=== PATIENT | female | born 1975 | race Caucasian/White ===

== ENCOUNTER 2016-07-18 18:42 | Emergency (ER) | payer OTHER | END 2016-07-18 22:31 | disposition critical access hospital (66) | LOC: ER 18:42 | DX: T40.1X1A Poisoning by heroin, accidental (unintentional), initial encounter (principal); I46.9 Cardiac arrest, cause unspecified; F19.10 Other psychoactive substance abuse, uncomplicated | CPT/HCPCS: 36556; 51702; 92950; 96361; 96365; 96376; J0330 ==

== ENCOUNTER 2016-07-18 18:42 | Observation (INO) | payer OTHER ==
[~2016-07-18] VITALS: Ht 167.6 cm; Wt 80.3 kg
--- NOTE | 2016-07-19 06:35 | NUR ---
PT WOKE UP WHEN WE WENT IN TO DRAW AM LABS OUT OF HER DEEP LINE. SHE WAS CONFUSED TO WHY SHE WAS IN THE HOSPITAL AND DIDN'T REMEMBER ANY OF THE EVENTS LEADING UP TO HER ENDING UP HERE. SHE IS ALERT AND ORIENTED, JUST DOESN'T REMEMBER EVENTS LEADING UP TO HER GETTING HERE OR ANY OF HER TIME HERE SINCE ARRIVAL TO ED. SHE CALLED HER FATHER AND APPARENTLY HE WAS AWARE THAT SHE WAS HERE, BUT WAS TOLD HE COULDN'T SEE HER WHILE IN ED AND APPARENTLY LEFT. SHE COMPLAINS OF CHEST SORENESS. I EXPLAINED THE SEVERITY OF HER CONDITION WHEN SHE ARRIVED AND THAT SHE LIKELY HAD CHEST COMPRESSIONS DONE ON HER CAUSING THE SORENESS. SHE WAS VERY OVERWHELMED AND SEEMED KIND OF SAD. SHE ASKED IF SHE WOULD GET TO GO HOME TODAY. I TOLD HER IT DEPENDS, BUT BETWEEN NOW AND THE TIME ARRIVES SHE NEEDS TO CONSIDER WHETHER SHE WOULD WANT TO DO REHAB. I DIMMED HER LIGHTS AND SHE DOZED BACK OFF TO SLEEP SHORTLY AFTER
--- NOTE | 2016-07-19 10:30 | NUR ---
NURSE FROM [facility] IS AT PATIENT'S BEDSIDE TO EVALUATE PATIENT FOR POSSIBLE SUICIDE ATTEMPT VS INPATIENT REHAB.
--- NOTE | 2016-07-19 12:45 | NUR ---
WENT OVER PATIENT'S DISCHARGE INSTRUCTIONS AND HOME MEDICATIONS AND ALL HER QUESTIONS WERE ANSWERED. HER BELONGINGS WERE PACKED UP AND PATIENT WAS ALREADY DRESSED TO GO HOME. PATIENT EXITED ICU VIA AMBULATORY ACCOMPANIED BY FAMILY IN NO ACUTE DISTRESS.
== END 2016-07-19 12:45 | disposition home or self-care (01) ==
LOC: ER 18:42 → EDBD 18:42 → ICU 22:32 → MED 07-19 10:28 → ICU 07-19 10:30 → MED 07-19 10:49 → ICU 07-19 10:50
PROVIDERS: ADMIT Internal Medicine
DX: I46.9 Cardiac arrest, cause unspecified (principal); F19.10 Other psychoactive substance abuse, uncomplicated; T42.3X1A Poisoning by barbiturates, accidental (unintentional), initial encounter; T42.4X1A Poisoning by benzodiazepines, accidental (unintentional), initial encounter
CPT/HCPCS: 36415; 80307; 96372; 96376; G0378; G0480; J1650